=== PATIENT | female | born 1970 | race Native Hawaiian/Other Pacific Islander ===

== ENCOUNTER 2021-10-08 17:10 | Emergency (ER) | payer OTHER ==
[2021-10-08 17:29] VITALS: PULSE 78
--- NOTE | 2021-10-08 18:09 | ERPHSYRPT ---
- History of Present Illness Time Seen by Provider: 10/08/21 17:30 Source: patient Exam Limitations: no limitations Patient Subjective Stated Complaint: Right arm pain Triage Nursing Assessment: Patient ambulated back to ED and transferred self to bed. Patient A+O X3. Patient's skin pink ,warm and dry. Patient complains of right arm pain that starts in her finger tips and goes to shoulder that woke her up in the night 09/01. Patient states she was at work today and her right arm "locked up" and had a shooting pain from her finger tips to her right shoulder. Patient denies recent injury or trauma. Patient also complains of intermittent pain to left arm, but denies pain now. Physician History: Patient is a 51-year-old female who works building parts performing repetitive activities. Patient states she was at work when her right arm began to hurt. Patient states her joint locked up on her. This lasted for a short period of time. Patient did resume her job. That night patient went to sleep and awoke with arm pain. Pain starts at her hands and wrists and tends to radiate up towards her shoulder. Patient currently has tenderness along the wrist and forearm. Pain mostly on the right side. The left side is affected as well but not as much as the right side. Patient is right-hand dominant. No chest pain no shortness of breath. No nausea vomiting or diaphoresis. Symptoms are mild to moderate in intensity. Palpation and movement reproduce symptoms. Pain improved with rest. Patient voices no other complaints or concerns at this time. Portions of this note were created with voice recognition technology. There may be grammatical, spelling, punctuation or sound alike errors Occurred: yesterday Method of Injury: unknown Quality: constant, throbbing Severity of Pain-Max: moderate Severity of Pain-Current: mild Extremities Pain Location: forearm: right, wrist: right, hand: right Modifying Factors: Improves With: movement, other (Palpation also reproduces symptoms.) Associated Symptoms: none Allergies/Adverse Reactions: codeine Allergy (Verified 10/08/21 17:22) Penicillins Allergy (Verified 10/08/21 17:22) Home Medications: No Reportable Medications [No Reported Medications] 10/08/21 [History] Hx Influenza Vaccination/Date Given: No Hx Pneumococcal Vaccination/Date Given: No Immunizations Up to Date: Yes Travel Risk - International Travel Have you traveled outside of the country in past 3 weeks: No - Coronavirus Screening Are you exhibiting any of the following symptoms?: No Close contact with a COVID-19 positive Pt in past 14-21 Days: No - Vaccine Status Have you recieved a Covid-19 vaccination: No - Review of Systems Constitutional: No Symptoms, No Fever, No Chills Eyes: No Symptoms Ears, Nose, & Throat: No Symptoms Respiratory: No Symptoms, No Cough, No Dyspnea Cardiac: No Symptoms, No Chest Pain, No Edema, No Syncope Abdominal/Gastrointestinal: No Symptoms, No Abdominal Pain, No Nausea, No Vomi ting, No Diarrhea Genitourinary Symptoms: No Symptoms, No Dysuria Musculoskeletal: No Symptoms, No Back Pain, No Neck Pain Skin: No Symptoms, No Rash Neurological: No Symptoms, No Dizziness, No Focal Weakness, No Sensory Changes Psychological: No Symptoms Endocrine: No Symptoms Hematologic/Lymphatic: No Symptoms Immunological/Allergic: No Symptoms All Other Systems: Reviewed and Negative - Past Medical History Pertinent Past Medical History: No Neurological History: No Pertinent History ENT History: No Pertinent History Cardiac History: No Pertinent History Respiratory History: No Pertinent History Endocrine Medical History: No Pertinent History Musculoskeletal History: Other GI Medical History: No Pertinent History History: No Pertinent History Psycho-Social History: No Pertinent History Female Reproductive Disorders: No Pertinent History Other Medical History: chronic back pain - Past Surgical History Past Surgical History: Yes Neuro Surgical History: No Pertinent History Cardiac: No Pertinent History Respiratory: No Pertinent History Gastrointestinal: Cholecystectomy Genitourinary: No Pertinent History Musculoskeletal: Orthopedic Surgery Female Surgical History: No Pertinent History Other Surgical History: right foot - Social History Smoking Status: Never smoker Exposure to second hand smoke: No Drug Use: none Patient Lives Alone: No - Nursing Vital Signs Nursing Vital Signs: Initial Vital Signs Temperature 96.4 F 10/08/21 17:23 Pulse Rate 78 10/08/21 17:23 Respiratory Rate 18 10/08/21 17:23 Blood Pressure 117/84 10/08/21 17:23 O2 Sat by Pulse Oximetry 99 10/08/21 17:23 Pain Scale Pain Intensity 7 - Physical Exam General Appearance: no apparent distress, alert Eyes, Ears, Nose, Throat Exam: normal ENT inspection, TMs normal, pharynx normal, moist mucous membranes Neck Exam: normal inspection, non-tender, supple, full range of motion Cardiovascular/Respiratory Exam: chest non-tender, normal breath sounds, regular rate/rhythm, heart sounds normal, no respiratory distress Abdominal Exam: non-tender, soft, No guarding Back Exam: normal inspection, No vertebral tenderness Shoulder Exam: normal inspection Elbow/Forearm Exam: normal inspection Wrist Exam: normal inspection, pain (Positive Phalen's test. Fingers go numb at the median nerve distribution. No involvement of the small finger) Hand Exam: normal inspection Neuro/Tendon Exam: normal sensation, normal motor functions Mental Status Exam: alert, oriented x 3, cooperative Skin Exam: normal color, warm, dry SpO2 Interpretation: normal SpO2: 99 O2 Delivery: Room Air - Course Nursing assessment & vital signs reviewed: Yes EKG Interpreted by Me: RATE (66), Sinus Rhythm, NORMAL AXIS, NORMAL INTERVALS - Progress Progress: improved Progress Note: Patient reassessed. She is well. Vital stable. Patient is a former smoker. No other cardiovascular risk factors. EKG normal sinus rhythm. Patient's occupation involves repetitive motion which is likely causing injury to patient's wrist possible carpal tunnel syndrome. Phalen test positive. Will refer patient to orthopedic clinic tomorrow for reevaluation and carpal tunnel work-up. Patient placed in a right upper extremity wrist cock-up splint. Patient given a dose of ibuprofen. No indication for further work-up at this time. Will discharge home. Patient agrees to follow-up with her primary care doctor as scheduled as well as orthopedic clinic tomorrow. Portions of this note were created with voice recognition technology. There may be grammatical, spelling, punctuation or sound alike errors 10/08/21 18:12 Counseled pt/family regarding: diagnosis, need for follow-up - Departure Departure Disposition: Home Clinical Impression: Carpal tunnel syndrome on right, Repetitive motion injury Condition: Stable Critical Care Time: No Referrals: MONIQUE ALONZO MD [Primary Care Provider] - Follow up/PCP as directed Outpatient Orders: Ortho Referral Time Frame: 1 Day, Facility: [facility]. Hosp, Location: ORTHO CLINIC
[2021-10-08] MEDS ORDERED: TORAdol 30 mg Injection IM ONE (18:13)
[2021-10-08] MEDS ORDERED: TORAdol 30 mg Injection ONE (18:32)
[2021-10-08 18:50] VITALS: BP 119/79; O2SAT 98
== END 2021-10-08 18:56 | disposition home or self-care (01) ==
LOC: ED 17:10
DX: G56.01 Carpal tunnel syndrome, right upper limb (principal); X50.3XXA Overexertion from repetitive movements, initial encounter; Y99.0 Civilian activity done for income or pay; M79.601 Pain in right arm; M79.602 Pain in left arm; Z28.310 Unvaccinated for COVID-19
CPT/HCPCS: 99282; J1885

== ENCOUNTER 2022-07-30 11:46 | Day surgery (SDC) | payer OTHER ==
[2022-07-30] MEDS ORDERED: BUPIVACAINE 0.5% VIAL IJ ONE (11:47)
[2022-07-30] MEDS ORDERED: Depo-Medrol 40 MG/ML IM ONE (11:47)
[2022-07-30 12:48] LABS: HCG URINE TEST NEGATIVE (NEGATIVE)
[2022-07-30] MEDS ORDERED: DIPRIVAN 200 MG/20 ML IV ONE (13:19)
[2022-07-30] MEDS ORDERED: Lactated Ringers 1,000 ML IV ONE (15:06)
--- NOTE | 2022-07-30 19:20 | XRAY ---
Indication: Right SI joint injection. Intraoperative fluoroscopy provided for 6 seconds. 2 digital spot image submitted for interpretation demonstrates posterior needle tip projecting over the right SI joint. Correlate with intraoperative findings/report.
--- NOTE | 2022-07-30 19:26 | XRAY ---
6 seconds of fluoroscopy was used in surgery for a right sacroiliac joint injection.
== END 2022-07-30 13:45 | disposition home or self-care (01) ==
LOC: SDC-PAIN 11:46
PROVIDERS: ATTEND Psychiatry & Neurology Pain Medicine
DX: M46.1 Sacroiliitis, not elsewhere classified (principal); Z79.899 Other long term (current) drug therapy
CPT/HCPCS: 27096; 72170; 77002; 81025; J1030; J2704; G0260

== ENCOUNTER 2022-09-18 08:08 | Day surgery (SDC) | payer OTHER ==
[2022-09-18] MEDS ORDERED: BUPIVACAINE 0.5% VIAL IJ ONE (08:09)
[2022-09-18] MEDS ORDERED: Depo-Medrol 40 MG/ML IM ONE (08:09)
[2022-09-18 09:13] LABS: HCG URINE TEST NEGATIVE (NEGATIVE)
[2022-09-18] MEDS ORDERED: DIPRIVAN 200 MG/20 ML IV ONE (10:18)
--- NOTE | 2022-09-18 11:00 | XRAY ---
Indication: Right L4-S1 MBB. Intraoperative fluoroscopy provided for 8 seconds. Single digital spot image submitted for interpretation demonstrates posterior needle tips projecting over the expected right L4-S1 nerve roots. Correlate with intraoperative findings/report.
[2022-09-18] MEDS ORDERED: Lactated Ringers 1,000 ML IV ONE (11:42)
--- NOTE | 2022-09-18 11:51 | XRAY ---
8 seconds of fluoroscopy was used in surgery for a right L4-S1 MBB.
== END 2022-09-18 10:41 | disposition home or self-care (01) ==
LOC: SDC-PAIN 08:08
PROVIDERS: ATTEND Psychiatry & Neurology Pain Medicine
DX: M47.816 Spondylosis without myelopathy or radiculopathy, lumbar region (principal); Z79.899 Other long term (current) drug therapy
CPT/HCPCS: 64493; 64494; 72020; 77002; 81025; J1030; J2704

== ENCOUNTER 2023-01-05 16:05 | Emergency (ER) | payer OTHER ==
[2023-01-05 17:44] VITALS: TEMP 97.1
[2023-01-05] MEDS ORDERED: PROTONIX 40 MG IV IV ONE ×2 (19:08→19:13)
[2023-01-05] MEDS ORDERED: Hydromorphone 1 mg/ml Injection IV ONE (19:08)
[2023-01-05] MEDS ORDERED: Sodium Chloride 0.9% 1000 ML 1,000 ML IV STA (19:08)
[2023-01-05] MEDS ORDERED: Zofran 4 MG/2 ML VIAL IV ONE (19:08)
--- NOTE | 2023-01-05 19:08 | ERPHSYRPT ---
- History of Present Illness Time Seen by Provider: 01/05/23 19:07 Historian: patient, family Exam Limitations: no limitations Patient Subjective Stated Complaint: Pt states "I have been sick for awhile, I have diarrhea, horrible belly pain and a nasty cough." Triage Nursing Assessment: Pt presented alert and oriented X 3, skin pwd. Pt ambulates with an upright steady gait, able to speak in clear full sentences. PT able to speak in clear full sentences. Pt resting comfortalby on the bed. Physician History: This is a 52-year-old white female patient who since November 2022 she has had intermittent coughing episodes as well as epigastric abdominal pain. She denies chest pain. She denies shortness of breath. She has had vomiting and diarrhea symptoms as well. Patient has had a cholecystectomy in the past. Timing/Duration: worse, other (Since November 2022) Quality: sharpness, stabbing Abdominal Pain Onset Location: epigastric Pain Radiation: no radiation Severity of Pain-Max: moderate Severity of Pain-Current: moderate Associated Symptoms: diaphoresis, diarrhea, nausea, vomiting, No chest pain, No fever/chills, No shortness of breath Previous symptoms: no prior history, no recent treatment Allergies/Adverse Reactions: codeine Allergy (Verified 10/08/21 17:22) Penicillins Allergy (Verified 10/08/21 17:22) Hx Tetanus, Diphtheria Vaccination/Date Given: No Hx Influenza Vaccination/Date Given: No Hx Pneumococcal Vaccination/Date Given: No Immunizations Up to Date: No Travel Risk - International Travel Have you traveled outside of the country in past 3 weeks: No - Coronavirus Screening Are you exhibiting any of the following symptoms?: Yes Symptoms: Vomiting/Diarrhea Close contact with a COVID-19 positive Pt in past 14-21 Days: No - Vaccine Status Have you recieved a Covid-19 vaccination: No - Review of Systems Constitutional: No Symptoms Eyes: No Symptoms Ears, Nose, & Throat: No Symptoms Respiratory: Cough Cardiac: No Symptoms Abdominal/Gastrointestinal: Abdominal Pain, Nausea, Vomiting, Diarrhea Genitourinary Symptoms: No Symptoms Musculoskeletal: No Symptoms Skin: No Symptoms Neurological: No Symptoms Psychological: No Symptoms Endocrine: No Symptoms Hematologic/Lymphatic: No Symptoms Immunological/Allergic: No Symptoms All Other Systems: Reviewed and Negative - Past Medical History Pertinent Past Medical History: Yes Neurological History: No Pertinent History ENT History: No Pertinent History Cardiac History: No Pertinent History Respiratory History: No Pertinent History Endocrine Medical History: No Pertinent History Musculoskeletal History: Other GI Medical History: No Pertinent History History: No Pertinent History Psycho-Social History: No Pertinent History Female Reproductive Disorders: No Pertinent History Other Medical History: chronic back pain - Past Surgical History Past Surgical History: Yes Neuro Surgical History: No Pertinent History Cardiac: No Pertinent History Respiratory: No Pertinent History Gastrointestinal: Cholecystectomy Genitourinary: No Pertinent History Musculoskeletal: Orthopedic Surgery Female Surgical History: No Pertinent History Other Surgical History: right foot. tubal - Social History Smoking Status: Never smoker Exposure to second hand smoke: No Drug Use: none Patient Lives Alone: No - Nursing Vital Signs Nursing Vital Signs: Initial Vital Signs Temperature 97.1 F 01/05/23 17:33 Pulse Rate 63 01/05/23 17:33 Respiratory Rate 22 01/05/23 17:33 Blood Pressure 109/69 01/05/23 17:33 O2 Sat by Pulse Oximetry 100 01/05/23 17:33 Pain Scale Pain Intensity 7 - Physical Exam General Appearance: no apparent distress, alert, anxiety Eye Exam: PERRL/EOMI, eyes nml inspection Ears, Nose, Throat Exam: normal ENT inspection, moist mucous membranes Neck Exam: normal inspection, non-tender, supple, full range of motion Respiratory Exam: normal breath sounds, lungs clear, airway intact, No chest tenderness, No respiratory distress Cardiovascular Exam: regular rate/rhythm, normal heart sounds, normal peripheral pulses Gastrointestinal/Abdomen Exam: soft, normal bowel sounds, tenderness (Gastrium), guarding (Mild to palpation), No rebound Pelvic Exam: not done Rectal Exam: not done Back Exam: normal inspection, normal range of motion, No CVA tenderness, No vertebral tenderness Extremity Exam: normal inspection, normal range of motion, pelvis stable Neurologic Exam: alert, oriented x 3, cooperative, plastic and reconstructive surgeon II-XII nml as tested, normal mood/affect, nml cerebellar function, nml station & gait, sensation nml Skin Exam: normal color, warm, dry Lymphatic Exam: No adenopathy SpO2 Interpretation: normal SpO2: 100 O2 Delivery: Room Air - Course Nursing assessment & vital signs reviewed: Yes Ordered Tests: Active Orders 24 hr Category Date Time Status IV Insertion STAT Care 01/05/23 19:08 Active ABDOMEN AND PELVIS W/0 CONTRAS [CT] Stat Exams 01/05/23 19:09 Taken CHEST 1 VIEW (PORTABLE) Stat Exams 01/05/23 19:09 Taken AMYLASE Stat Lab 01/05/23 19:00 Completed BLOOD CULTURE Stat Lab 01/05/23 19:49 Ordered CBC W DIFF Stat Lab 01/05/23 19:00 Completed CMP Stat Lab 01/05/23 19:00 Completed LIPASE Stat Lab 01/05/23 19:00 Completed MONO SCREEN Stat Lab 01/05/23 19:00 Completed UA W/RFX UR CULTURE Stat Lab 01/05/23 17:33 Completed Medication Summary Generic Name Dose Route Start Last Admin Trade Name Freq PRN Reason Stop Dose Admin Azithromycin 500 mg/ Sodium 250 mls @ 125 mls/hr 01/05/23 21:04 01/05/23 21:13 Chloride IV 01/05/23 23:03 125 mls/hr STAT ONE Administration Discontinued Medications Generic Name Dose Route Start Last Admin Trade Name Freq PRN Reason Stop Dose Admin Hydromorphone HCl 1 mg 01/05/23 19:08 01/05/23 20:11 Hydromorphone 1 Mg/1ml Inj IV 01/05/23 19:09 1 mg STAT ONE Administration Hydromorphone HCl Confirm 01/05/23 19:13 Hydromorphone 1 Mg/1ml Inj Administered 01/05/23 19:14 Dose 1 mg .ROUTE .STK-MED ONE Sodium Chloride 1,000 mls @ 999 mls/hr 01/05/23 19:08 01/05/23 20:12 Sodium Chloride 0.9% 1000 Ml IV 01/05/23 20:08 999 mls/hr .Q1H1M STA Administration Sodium Chloride Confirm 01/05/23 19:13 Sodium Chloride 0.9% 1000 Ml Administered 01/05/23 19:14 Dose 1,000 mls @ ud .ROUTE .STK-MED ONE Azithromycin Confirm 01/05/23 21:12 Zithromax 500 Mg/ 250 Ml Nacl Premix Administered 01/05/23 21:13 Dose 500 mg in 250 mls @ ud IV .STK-MED ONE Lorazepam 1 mg 01/05/23 21:02 01/05/23 21:11 Lorazepam 2 Mg/1 Ml 2 Mg Vial IV 01/05/23 21:03 1 mg STAT ONE Administration Lorazepam Confirm 01/05/23 21:06 Lorazepam 2 Mg/1 Ml 2 Mg Vial Administered 01/05/23 21:07 Dose 2 mg .ROUTE .STK-MED ONE Ondansetron HCl 4 mg 01/05/23 19:08 01/05/23 20:11 Ondansetron Hcl 4 Mg/2 Ml Vial IV 01/05/23 19:09 4 mg STAT ONE Administration Ondansetron HCl Confirm 01/05/23 19:13 Ondansetron Hcl 4 Mg/2 Ml Vial Administered 01/05/23 19:14 Dose 4 mg .ROUTE .STK-MED ONE Pantoprazole Sodium 40 mg 01/05/23 19:08 01/05/23 20:11 Pantoprazole 40 Mg Vial IV 01/05/23 19:09 40 mg STAT ONE Administration Pantoprazole Sodium Confirm 01/05/23 19:13 Pantoprazole 40 Mg Vial Administered 01/05/23 19:14 Dose 40 mg IV .STK-MED ONE Lab/Rad Data: Laboratory Result Diagrams 01/05/23 19:00 01/05/23 19:00 Laboratory Results 01/05/23 01/05/23 01/05/23 Range/Units 19:40 19:35 19:00 WBC (4.0-10.5) x10^3/uL RBC (4.1-5.4) x10^6/uL Hgb (12.0-16.0) g/dL Hct (35-47) % MCV (78-100) fL MCH (26-32) pg MCHC (32-36) g/dL RDW (11.5-14.0) % Plt Count (150-450) x10^3/uL MPV (7.5-11.0) fL Gran % (36.0-66.0) % Immature Gran % (Auto) (0.00-0.4) % Nucleat RBC Rel Count (0.00-0.1) % Eos # (Auto) (0-0.5) x10^3/uL Immature Gran # (Auto) (0.00-0.03) x10^3u/L Absolute Lymphs (auto) (1.0-4.6) x10^3/uL Absolute Monos (auto) (0.0-1.3) x10^3/uL Absolute Nucleated RBC (0.00-0.01) x10^3u/L Lymphocytes % (24.0-44.0) % Monocytes % (0.0-12.0) % Eosinophils % (0.00-5.0) % Basophils % (0.0-0.4) % Absolute Granulocytes (1.4-6.9) x10^3/uL Basophils # (0-0.4) x10^3/uL Sodium (137-145) mmol/L Potassium (3.5-5.1) mmol/L Chloride (98-107) mmol/L Carbon Dioxide (22-30) mmol/L Anion Gap (5-15) MEQ/L BUN (7-17) mg/dL Creatinine (0.52-1.04) mg/dL Estimated GFR ML/MIN Glucose (74-106) mg/dL Calcium (8.4-10.2) mg/dL Total Bilirubin (0.2-1.3) mg/dL AST (14-36) U/L ALT (0-35) U/L Alkaline Phosphatase (38-126) U/L Serum Total Protein (6.3-8.2) g/dL Albumin (3.5-5.0) g/dL Amylase (30-110) U/L Lipase (23-300) U/L Urine Color (Yellow) Urine Appearance (Clear) Urine pH (4.6-8.0) Ur Specific [place] (1.005-1.030) Urine Protein (Negative) Urine Glucose (UA) (Negative) mg/dL Urine Ketones (Negative) Urine Blood (Negative) Urine Nitrite (Negative) Urine Bilirubin (Negative) Urine Urobilinogen (0.2) mg/dL Ur Leukocyte Esterase (Negative) U Hyaline Cast (Auto) (0-2) /LPF Urine Microscopic RBC (0-5) /HPF Urine Microscopic WBC (0-5) /HPF Ur Epithelial Cells (None Seen) /HPF Urine Bacteria (None Seen) /HPF Urine Culture Reflexed (NO) Monoscreen NEGATIVE (NEGATIVE) Influenza Type A Ag NEGATIVE (NEGATIVE) Influenza Type B Ag NEGATIVE (NEGATIVE) RSV (PCR) NEGATIVE (NEGATIVE) SARS-CoV-2 (PCR) NEGATIVE (NEGATIVE) Group A Strep Antibody DETECTED (NEGATIVE) 01/05/23 01/05/23 01/05/23 Range/Units 19:00 19:00 17:33 WBC 6.9 (4.0-10.5) x10^3/uL RBC 4.39 (4.1-5.4) x10^6/uL Hgb 13.7 (12.0-16.0) g/dL Hct 41.9 (35-47) % MCV 95.4 (78-100) fL MCH 31.2 (26-32) pg MCHC 32.7 (32-36) g/dL RDW 12.2 (11.5-14.0) % Plt Count 184 (150-450) x10^3/uL MPV 10.8 (7.5-11.0) fL Gran % 43.5 (36.0-66.0) % Immature Gran % (Auto) 0.3 (0.00-0.4) % Nucleat RBC Rel Count 0.0 (0.00-0.1) % Eos # (Auto) 0.23 (0-0.5) x10^3/uL Immature Gran # (Auto) 0.02 (0.00-0.03) x10^3u/L Absolute Lymphs (auto) 3.28 (1.0-4.6) x10^3/uL Absolute Monos (auto) 0.35 (0.0-1.3) x10^3/uL Absolute Nucleated RBC 0.00 (0.00-0.01) x10^3u/L Lymphocytes % 47.4 H (24.0-44.0) % Monocytes % 5.1 (0.0-12.0) % Eosinophils % 3.3 (0.00-5.0) % Basophils % 0.4 (0.0-0.4) % Absolute Granulocytes 3.01 (1.4-6.9) x10^3/uL Basophils # 0.03 (0-0.4) x10^3/uL Sodium 137 (137-145) mmol/L Potassium 3.3 L (3.5-5.1) mmol/L Chloride 104 (98-107) mmol/L Carbon Dioxide 25 (22-30) mmol/L Anion Gap 12.0 (5-15) MEQ/L BUN 7 (7-17) mg/dL Creatinine 0.79 (0.52-1.04) mg/dL Estimated GFR 90.5 ML/MIN Glucose 101 (74-106) mg/dL Calcium 8.8 (8.4-10.2) mg/dL Total Bilirubin 0.40 (0.2-1.3) mg/dL AST 25 (14-36) U/L ALT 17 (0-35) U/L Alkaline Phosphatase 76 (38-126) U/L Serum Total Protein 7.2 (6.3-8.2) g/dL Albumin 3.9 (3.5-5.0) g/dL Amylase 87 (30-110) U/L Lipase 138 (23-300) U/L Urine Color Yellow (Yellow) Urine Appearance Clear (Clear) Urine pH 6.5 (4.6-8.0) Ur Specific [place] <=1.005 (1.005-1.030) Urine Protein Negative (Negative) Urine Glucose (UA) Negative (Negative) mg/dL Urine Ketones Negative (Negative) Urine Blood Negative (Negative) Urine Nitrite Negative (Negative) Urine Bilirubin Negative (Negative) Urine Urobilinogen 0.2 (0.2) mg/dL Ur Leukocyte Esterase Negative (Negative) U Hyaline Cast (Auto) NONE SEEN (0-2) /LPF Urine Microscopic RBC 0-2 (0-5) /HPF Urine Microscopic WBC 0-2 (0-5) /HPF Ur Epithelial Cells None Seen (None Seen) /HPF Urine Bacteria None Seen (None Seen) /HPF Urine Culture Reflexed NO (NO) Monoscreen (NEGATIVE) Influenza Type A Ag (NEGATIVE) Influenza Type B Ag (NEGATIVE) RSV (PCR) (NEGATIVE) SARS-CoV-2 (PCR) (NEGATIVE) Group A Strep Antibody (NEGATIVE) - Progress Progress: improved, pain not gone completely, re-examined Progress Note: 01/05/23 20:43 This patient's medical issue is 1 of moderate complexity. Level of complexity in the work-up performed is based on review of the patient's past medical history, review of the patient's medication list, review the patient's drug allergy list, history of present illness and physical findings on examination. This patient's work-up includes placement of intravenous line, infusion of Protonix intravenously, Dilaudid intravenously and Zofran intravenously, amylase, lipase, urinalysis, CBC, CMP, chest x-ray, viral studies, monotest, CT scan of the abdomen pelvis. 01/05/23 21:04 Patient is positive for strep. We will provide her with a Z-Tucker. We will give her initial azithromycin dose here in the emergency department intravenously. 01/05/23 21:16 CT scan of the abdomen pelvis without contrast was interpreted by the radiologist and I reviewed the impression. There is no comparison films avail able. The patient's CT scan of the abdomen pelvis without contrast is a normal study with no evidence of any acute process. Counseled pt/family regarding: lab results, diagnosis, need for follow-up, rad results Medical Desision Making - Independent Historian Additional History obtained from: Child - Diagnostic Testing Diagnostic test were ordered, analyzed, and reviewed by me: Yes Radiological Interpretation: Interpreted by me, Reviewed by me, Teleradiologist Report - Risk of complications The pt has a mod risk of morbidity or mortality based on: Need for prescription drug management - Departure Departure Disposition: Home Clinical Impression: Strep pharyngitis Condition: Stable Critical Care Time: No Referrals: MONIQUE ALONZO MD [Primary Care Provider] - Follow up/PCP as directed Additional Instructions: Drink plenty of clear liquids. Take your prescription medicine as prescribed. Follow-up with your primary care provider for further evaluation and management. Call them tomorrow, 01/06/2023 to make arrangements for follow-up appointment the next 3 to 5 days. Prescriptions: Prednisone 10 mg [Deltasone 10 mg] 10 mg PO TID #12 tablet Azithromycin 250 mg [Zithromax 250 MG TABLET] 250 mg PO ZPACK #6 tablet
[2023-01-05] MEDS ORDERED: Zofran 4 MG/2 ML VIAL ONE (19:13)
[2023-01-05] MEDS ORDERED: Hydromorphone 1 mg/ml Injection ONE (19:13)
[2023-01-05] MEDS ORDERED: Sodium Chloride 0.9% 1000 ML 1,000 ML ONE (19:13)
[2023-01-05 19:21] LABS: Absolute Neutrophil Ct (ANC) 3.01 x10^3/uL (1.4-6.9); BASOPHIL % 0.4 % (0.0-0.4); Basophil (Absolute #) 0.03 x10^3/uL (0-0.4); Eosinophil % 3.3 % (0.00-5.0); Eosinophil (Absolute #) 0.23 x10^3/uL (0-0.5); Hematocrit 41.9 % (35-47); Hemoglobin 13.7 g/dL (12.0-16.0); IMMATURE GRAN # 0.02 x10^3u/L (0.00-0.03); IMMATURE GRAN % 0.3 % (0.00-0.4); Lymphocyte (Absolute #) 3.28 x10^3/uL (1.0-4.6); Lymphocytes % 47.4 % (24.0-44.0); Mean Cell Volume 95.4 fL (78-100); Mean Corpuscular Hemoglobin 31.2 pg (26-32); Mean Corpuscular Hgb Concent. 32.7 g/dL (32-36); Mean Platelet Volume 10.8 fL (7.5-11.0); Monocyte (Absolute #) 0.35 x10^3/uL (0.0-1.3); Monocytes % 5.1 % (0.0-12.0); Neutrophil % 43.5 % (36.0-66.0); Platelet Count 184 x10^3/uL (150-450); Red Blood Count 4.39 x10^6/uL (4.1-5.4); Red Cell Distribution Width 12.2 % (11.5-14.0); White Blood Count 6.9 x10^3/uL (4.0-10.5)
[2023-01-05 19:34] LABS: ALBUMIN 3.9 g/dL (3.5-5.0); BILIRUBIN,TOTAL 0.4 mg/dL (0.2-1.3); Calcium 8.8 mg/dL (8.4-10.2); Creatinine 1 0.79 mg/dL (0.52-1.04); EST GLOMERULAR FILTRATION RATE 90.5 ML/MIN; Potassium 3.3 mmol/L (3.5-5.1); Total Protein 7.2 g/dL (6.3-8.2)
[2023-01-05 19:58] LABS: Appearance Clear (Clear); Bacteria None Seen /HPF (None Seen); Bilirubin Negative (Negative); Blood Negative (Negative); Epithelial Cells None Seen /HPF (None Seen); Glucose, Urine Negative (Negative); Hyaline Casts NONE SEEN /LPF (0-2); Ketones Negative (Negative); Leukocyte Esterase Negative (Negative); Nitrite Negative (Negative); Ph 6.5 (4.6-8.0); Protein,Urine Dip Negative (Negative); RBC 0-2 /HPF (0-5); Specific Gravity <=1.005 (1.005-1.030); Urobilinogen 0.2 mg/dL (0.2); WBC 0-2 /HPF (0-5)
[2023-01-05 20:08] LABS: ADD URINE CULTURE? NO (NO)
[2023-01-05 20:28] LABS: INFLUENZA A NEGATIVE (NEGATIVE); INFLUENZA B NEGATIVE (NEGATIVE); RESPIRATORY SYNCTIAL VIRUS NEGATIVE (NEGATIVE); SARS-CoV-2 Xpert Express NEGATIVE (NEGATIVE)
[2023-01-05] MEDS ORDERED: Ativan 2 MG/1 ML VIAL IV ONE (21:02)
[2023-01-05] MEDS ORDERED: ZITHROMAX IV*** 500 MG in Sodium Chloride 0.9% 250 ML 250 ML IV ONE (21:04)
[2023-01-05] MEDS ORDERED: Ativan 2 MG/1 ML VIAL ONE (21:06)
[2023-01-05] MEDS ORDERED: Zithromax 500 MG/ 250 ML NaCl Premix 500 MG/250 ML IVPB IV ONE (21:12)
[2023-01-05] MEDS ORDERED: Sodium Chloride 0.9% 500 ML 500 ML IV ONE ×2 (22:13→22:14)
[2023-01-06 00:49] VITALS: O2SAT 98
[2023-01-06 01:06] VITALS: RESP 18
[2023-01-06 01:17] VITALS: BP 102/65; PULSE 58
--- NOTE | 2023-01-06 08:44 | XRAY ---
Indication: Cough. Comparison: None Portable chest demonstrates normal heart and lungs. Bony thorax intact with osteopenia and mild dextroscoliosis.
--- NOTE | 2023-01-06 08:46 | XRAY ---
Indication: Pain, nausea, vomiting, diarrhea. Multiple contiguous axial images obtained through the abdomen and pelvis without contrast. Comparison: None Lung bases clear. Heart not enlarged. Noncontrasted stomach and bowel loops appear nonobstructed with normal-appearing appendix. Incidental punctate hepatic calcified granulomas. Previous cholecystectomy. No free fluid/air. Remaining liver, pancreas, spleen, adrenal glands, kidneys, ureters, bladder, and uterus are unremarkable for noncontrast exam. Mild scattered aortoiliac calcifications without AAA. Osseous structures intact with mild levoscoliosis centered at L3. No ventral or inguinal hernias. Impression: Chronic findings including hepatic calcified granuloma, arteriosclerotic disease, and levoscoliosis. Remaining CT abdomen/pelvis without contrast exam is negative.
== END 2023-01-06 01:22 | disposition home or self-care (01) ==
LOC: ED 16:05
DX: J02.0 Streptococcal pharyngitis (principal); R10.13 Epigastric pain; R05.9 Cough, unspecified; R11.2 Nausea with vomiting, unspecified; R19.7 Diarrhea, unspecified; Z79.52 Long term (current) use of systemic steroids; Z28.310 Unvaccinated for COVID-19
CPT/HCPCS: 0241U; 36000; 36415; 71045; 74176; 80053; 81001; 82150; 83690; 85025; 86308; 87040; 87651; 96360; 96361; 96365; 96366; 96374; 96375; 99285; J0456; J1170; J2060; J2405

== ENCOUNTER 2024-06-30 00:04 | Emergency (ER) | payer OTHER ==
[2024-06-30 00:23] VITALS: RESP 18; TEMP 96; O2SAT 99
--- NOTE | 2024-06-30 00:47 | ERPHSYRPT ---
- History of Present Illness Time Seen by Provider: 06/30/24 00:20 Source: patient Exam Limitations: no limitations Patient Subjective Stated Complaint: pt states that she has a fly stuck in her ear Triage Nursing Assessment: pt ambulated into the er; pt is axo x4; c/o foreign body to rt ear; pt denies pain; redness to rt middle ear; skin PDW; no respiratory distress present; vitals wnl Physician History: 53-year-old female presents to our ED for evaluation of a foreign body sensation in her right ear canal. Patient states she was driving her vehicle yesterday. Patient believes a fly flew into her ear. Patient states "I can hear the buzzing". Patient irrigated her ear at home. However the sensation remained. No change in hearing acuity. No dizziness. No trauma. Patient denies pain. Patient feels well otherwise. Patient voices no other complaints or concerns at this time. Portions of this note were created with voice recognition technology. There may be grammatical, spelling, punctuation or sound alike errors Timing/Duration: today Severity: moderate Modifying Factors: Improves With: nothing Associated Symptoms: denies symptoms Allergies/Adverse Reactions: codeine Allergy (Verified 06/30/24 00:14) Penicillins Allergy (Verified 06/30/24 00:14) Home Medications: No Reportable Medications [No Reported Medications] 06/30/24 [History] Hx Tetanus, Diphtheria Vaccination/Date Given: No Hx Influenza Vaccination/Date Given: No Hx Pneumococcal Vaccination/Date Given: No Travel Risk - International Travel Have you traveled outside of the country in past 3 weeks: No - Emerging Infectious Disease Are you exhibiting symptoms associated with any current EIDs: No - Review of Systems Constitutional: No Symptoms, No Fever, No Chills Eyes: No Symptoms Ears, Nose, & Throat: No Symptoms Respiratory: No Symptoms, No Cough, No Dyspnea Cardiac: No Symptoms, No Chest Pain, No Edema, No Syncope Abdominal/Gastrointestinal: No Symptoms, No Abdominal Pain, No Nausea, No Vomiting, No Diarrhea Genitourinary Symptoms: No Symptoms, No Dysuria Musculoskeletal: No Symptoms, No Back Pain, No Neck Pain Skin: No Symptoms, No Rash Neurological: No Symptoms, No Dizziness, No Focal Weakness, No Sensory Changes Psychological: No Symptoms Endocrine: No Symptoms Hematologic/Lymphatic: No Symptoms Immunological/Allergic: No Symptoms All Other Systems: Reviewed and Negative - Past Medical History Pertinent Past Medical History: Yes Neurological History: No Pertinent History ENT History: No Pertinent History Cardiac History: No Pertinent History Respiratory History: No Pertinent History Endocrine Medical History: No Pertinent History Musculoskeletal History: Other GI Medical History: No Pertinent History History: No Pertinent History Psycho-Social History: No Pertinent History Female Reproductive Disorders: No Pertinent History Other Medical History: chronic back pain - Past Surgical History Past Surgical History: Yes Neuro Surgical History: No Pertinent History Cardiac: No Pertinent History Respiratory: No Pertinent History Gastrointestinal: Cholecystectomy Genitourinary: No Pertinent History Musculoskeletal: Orthopedic Surgery Female Surgical History: No Pertinent History Other Surgical History: right foot. tubal - Female History Hx Now: No - Social History Smoking Status: Current some day smoker Exposure to second hand smoke: Yes Drug Use: none - Social Determinants of Health Will the patient participate in the screening: Yes Do you worry about a steady place to live?: No Do you have any problems with any of the following?: No known problems In the past 12 months,have you had to go without utilities?: No Transportation Issues: No Has anyone in your support network made you feel unsafe?: No Have you or anyone in your house had to go w/o enough food: No - Nursing Vital Signs Nursing Vital Signs: Initial Vital Signs Pulse Rate 72 06/30/24 00:14 Blood Pressure 121/78 06/30/24 00:14 O2 Sat by Pulse Oximetry 98 06/30/24 00:14 Pain Scale Pain Intensity 0 - Physical Exam General Appearance: no apparent distress, alert Eye Exam: PERRL/EOMI, eyes nml inspection Ears, Nose, Throat Exam: normal ENT inspection, TMs normal, pharynx normal, moist mucous membranes, other (No ear foreign body observed in either ear canal) Neck Exam: normal inspection, non-tender, supple, full range of motion Respiratory Exam: normal breath sounds, airway intact, No respiratory distress Back Exam: normal inspection, normal range of motion, No CVA tenderness, No vertebral tenderness Extremity Exam: normal inspection, normal range of motion, pelvis stable Neurologic Exam: alert, oriented x 3, cooperative, normal mood/affect, nml cerebellar function, sensation nml, No motor deficits Skin Exam: normal color, warm, dry, No rash Lymphatic Exam: No adenopathy SpO2 Interpretation: normal SpO2: 99 O2 Delivery: Room Air - Course Nursing assessment & vital signs reviewed: Yes - Progress Progress: improved Progress Note: 53-year-old female presents to our ED for evaluation of possible fly in her right ear. Physical exam was essentially nonremarkable. There is no fly in either ear. Patient was concerned that there was a fly in spite of my exam. RN irrigated the right ear. No foreign body or fly irrigated out. Ear was reassessed. No foreign body observed. Patient currently asymptomatic. No indication for further workup. Patient voices no other complaints or concerns at this time. Portions of this note were created with voice recognition technology. There may be grammatical, spelling, punctuation or sound alike errors Complexity of problem addressed is low, acute uncomplicated. No critical care time. Complexity of data reviewed and analyzed is none. No specialized testing ordered. Risk of complication/risk of morbidity/mortality of patient management is low. Vital stable. Time spent to discharge patient is approximately 10 minutes. Plan of care established for shared decision making. No social determinants of health present to impede follow-up. Portions of this note were created with voice recognition technology. There may be grammatical, spelling, punctuation or sound alike errors 06/30/24 00:53 Counseled pt/family regarding: diagnosis, need for follow-up - Departure Departure Disposition: Home Clinical Impression: Foreign body sensation in right ear canal Condition: Stable Critical Care Time: No Referrals: MONIQUE ALONZO MD [Primary Care Provider, UNKNOWN] - Follow up/PCP as directed Additional Instructions: Discharge/Care Plan LIBIA BALES was seen on 06/30/24 in the Emergency Room. The patient was counseled regarding Diagnosis,Lab results, Imaging studies, need for follow up and when to return to the Emergency Room. Prescriptions given: Discharge Note I have spoken with the patient and/or caregivers. I have explained the patient's condition, diagnosis and treatment plan based on the information available to me at this time. I have answered the patient's and/or caregiver's questions and addressed any concerns. The patient and/or caregivers have as good understanding of the patient's diagnosis, condition and treatment plan as can be expected at this point. The vital signs have been stable. The patient's condition is stable and appropriate for discharge from the emergency department. The patient will pursue further outpatient evaluation with the primary care physician or other designated or consulting physician as outlined in the discharge instructions. The patient and/or caregivers are agreeable to this plan of care and follow-up instructions have been explained in detail. The patient and/or caregivers have received these instruction. The patient/and or caregivers are aware that any significant change in condition or worsening of symptoms should prompt an immediate return to this or the closest emergency department or call 911.
[2024-06-30 00:55] VITALS: BP 106/75; PULSE 69
== END 2024-06-30 00:54 | disposition home or self-care (01) ==
LOC: ED 00:04
DX: Z03.823 Encounter for observation for suspected inserted (injected) foreign body ruled out (principal); Z72.0 Tobacco use
CPT/HCPCS: 99281